=== PATIENT | female | born 1930 | race Two or more races ===

== ENCOUNTER 2018-05-13 23:05 | Emergency (ER) | payer MEDICARE, MEDICAID ==
[~2018-05-13] VITALS: Ht 162.6 cm; Wt 49.9 kg
[~2018-05-13 23:05] MED LIST: ACET-868 PO; CHOL10002 PO; DOCU-270 PO; DONE5TAB34 PO; LEVO500T75 PO; LEVO50TA PO; LISI10TA5 PO; MAG30ORA PO; MAGN400O6 PO; NA P133E RC; PANT40TA4 PO; RISP0.2515 PO
--- NOTE | 2018-05-13 23:10 | NUR ---
PT GAURI FROM [facility] FOR FALLING OUT OF WHEELCHAIR. PT AAXO1. REDNESS NOTED ON FOREHEAD. NAD. VSS. RESPIRATIONS EVEN AND UNLABORED. PENDING EVAL FROM .
--- NOTE | 2018-05-13 23:41 | NUR ---
SPINNER FIXER AT BEDSIDE FOR LAB DRAW.
--- NOTE | 2018-05-13 23:45 | NUR ---
PT TAKEN TO CT.
[2018-05-13 23:46] LABS: BASOPHILS % (AUTO) 0.3 % (0.0-2.0); EOSINOPHILS % (AUTO) 0.4 % (0.0-6.0); HEMATOCRIT 36 % (33-45); HEMOGLOBIN 12.2 g/dL (11.5-14.8); LYMPHOCYTES # (AUTO) 2.4 /CMM (0.8-4.8); LYMPHOCYTES % (AUTO) 23.3 % (20.0-44.0); MEAN CORPUSCULAR HGB CONC 34 g/dl (31.0-36.0); MEAN CORPUSCULAR VOLUME 95 fL (82-100); MONOCYTES # (AUTO) 0.6 /CMM (0.1-1.30); MONOCYTES % (AUTO) 6.2 % (2.0-12.0); NEUTROPHILS # (AUTO) 7.3 /CMM (1.8-8.9); NEUTROPHILS % (AUTO) 69.8 % (43.0-81.0); PLATELET COUNT (AUTO) 225 /CMM (150-450); RED BLOOD CELL COUNT(AUTO) 3.78 MIL/uL (4.0-5.2); WHITE BLOOD COUNT (AUTO) 10.4 K/uL (4.3-11.0)
--- NOTE | 2018-05-14 00:02 | NUR ---
PT BACK FROM CT. PT ON THE MONITOR AND PULSE OX. NAD NOTED.
[2018-05-14 00:06] LABS: CALCIUM, SERUM 9.1 mg/dL (8.5-10.1); CARBON DIOXIDE 29 mmol/L (21-32); CHLORIDE 106 mmol/L (98-107); GLUCOSE 79 mg/dL (74-106); POTASSIUM 4.2 mmol/L (3.5-5.1); SODIUM SERUM 143 mmol/L (136-145); UREA NITROGEN, BLOOD 27 mg/dL (7-18)
--- NOTE | 2018-05-14 00:06 | NUR ---
Bora yap in [facility] - 05/14/18 at 0036 by EDIE PSYCH BENDING ROLL HAND AT BEDSIDE SPEAKING WITH PT.
--- NOTE | 2018-05-14 01:17 | NUR ---
Mary called eta 0216. Transfer #[id number].
--- NOTE | 2018-05-14 02:03 | NUR ---
Report given to [facility] Production Or Plant Engineer Eliel Bagley.
[2018-05-14 02:17] VITALS: BP 130/78
== END 2018-05-14 02:19 | disposition home or self-care (01) ==
LOC: ER 23:08
DX: S00.83XA Contusion of other part of head, initial encounter (principal); K21.9 Gastro-esophageal reflux disease without esophagitis; F03.90 Unspecified dementia, unspecified severity, without behavioral disturbance, psychotic disturbance, mood disturbance, and anxiety; F20.9 Schizophrenia, unspecified; E03.9 Hypothyroidism, unspecified; I10 Essential (primary) hypertension; F41.9 Anxiety disorder, unspecified; E78.5 Hyperlipidemia, unspecified; F29 Unspecified psychosis not due to a substance or known physiological condition; W05.0XXA Fall from non-moving wheelchair, initial encounter; Y93.89 Activity, other specified; Y92.89 Other specified places as the place of occurrence of the external cause; Y99.8 Other external cause status
CPT/HCPCS: 36415; 70450; 70486; 72125; 80048; 82962 ×2; 85025; 85730; 99284; A4606

== ENCOUNTER 2019-12-13 06:45 | Inpatient (IN) | payer MEDICARE, OTHER ==
[2019-12-13] VITALS (24 sets, daily range): BP systolic 77–134; BP diastolic 40–72
[~2019-12-13] VITALS: Ht 162.6 cm; Wt 50.1 kg
[~2019-12-13 06:45] MED LIST changes: +ACET-868 GT; -ACET-868 PO; +DOCU-270 GT; -DOCU-270 PO; +DONE5TAB34 GT; -DONE5TAB34 PO; +LEVO500T23 PO; -LEVO500T75 PO; +LISI10TA5 GT; -LISI10TA5 PO; +MAGN400O6 GT; -MAGN400O6 PO; -PANT40TA4 PO; +PANT40TA49 GT
--- NOTE | 2019-12-13 07:11 | NUR ---
BIB EMS FROM [facility] C/O LOW 02 SAT 89%. ON TRANSPORT NRB 93%. TO ER BED 8, 97% ON 2 L NC ORDERES RECEIVED AND CARRIED OUT
--- NOTE | 2019-12-13 07:11 | NUR ---
blood drawn and sent to the lab. f/c inserted, urine collected and sent to lab
[2019-12-13 07:18] LABS: BASOPHILS % (AUTO) 0.2 % (0.0-2.0); HEMATOCRIT 37 % (33-45); HEMOGLOBIN 12.4 g/dL (11.5-14.8); LYMPHOCYTES # (AUTO) 1.3 /CMM (0.8-4.8); LYMPHOCYTES % (AUTO) 7.2 % (20.0-44.0); MEAN CORPUSCULAR HGB CONC 34 g/dl (31.0-36.0); MEAN CORPUSCULAR VOLUME 100 fL (82-100); MONOCYTES # (AUTO) 0.4 /CMM (0.1-1.30); MONOCYTES % (AUTO) 2.3 % (2.0-12.0); NEUTROPHILS # (AUTO) 16.3 /CMM (1.8-8.9); NEUTROPHILS % (AUTO) 90.3 % (43.0-81.0); PLATELET COUNT (AUTO) 219 /CMM (150-450); RED BLOOD CELL COUNT(AUTO) 3.66 MIL/uL (4.0-5.2)
[2019-12-13 07:41] LABS: ALANINE AMINOTRANSFERASE 27 U/L (12-78); ALBUMIN 2.8 g/dL (3.4-5.0); ALKALINE PHOSPHATASE 94 U/L (46-116); ASPARTATE AMINOTRANSFERASE 41 U/L (15-37); B-TYPE NATRIURETIC PEPTIDE 668 PG/ML (0-125); BILIRUBIN,TOTAL 0.3 mg/dL (0.2-1.0); CALCIUM, SERUM 9.9 mg/dL (8.5-10.1); CARBON DIOXIDE 30 mmol/L (21-32); CHLORIDE 106 mmol/L (98-107); CREATININE 1.3 mg/dL (0.6-1.3); GLUCOSE 112 mg/dL (74-106); POTASSIUM 3.7 mmol/L (3.5-5.1); SODIUM SERUM 144 mmol/L (136-145); TOTAL PROTEIN, SERUM 7.8 g/dL (6.4-8.2); UREA NITROGEN, BLOOD 59 mg/dL (7-18)
[2019-12-13 07:52] LABS: ABG BASE EXCESS 3.8 mmol/L; ABG OXYGEN SATURATION 92.7 % (92.0-98.5); ABG PCO2 35.1 mmHg (35.0-45.0); ABG PH 7.501 (7.350-7.450); ABG PO2 63.8 mmHg (75.0-100.0); AaDO2 123.3 mmHg; COHb 0.2 % (0.5-1.5); MetHb 0.4 % (0.0-1.5); O2Hb 92.1 % (94.0-97.0); SITE, ABG Right Radial; VENT MODE, BG 3L NC
[2019-12-13] MEDS ORDERED: LACT-209 GT (08:12)
[2019-12-13] MEDS ORDERED: CALC-883 PO (08:12)
[2019-12-13] MEDS ORDERED: AMIN887L GT (08:12)
[2019-12-13] MEDS ORDERED: BISA10SU11 RC (08:12)
[2019-12-13] MEDS ORDERED: CRAN3875 GT (08:12)
[2019-12-13] MEDS ORDERED: LEVO25TA7 GT (08:12)
[2019-12-13 08:17] LABS: D-DIMER 7.43 mg/L(FEU (0.17-0.50)
[2019-12-13 08:23] LABS: CREATINE KINASE, TOTAL 301 U/L (26-192); FERRITIN 171 ng/mL (8-388)
[2019-12-13 08:32] LABS: APPEARANCE,URINE CLEAR (CLEAR); BILIRUBIN,URINE TRACE (NEGATIVE); BLOOD, URINE TRACE Ery/uL (NEGATIVE); COLOR,URINE YELLOW (YELLOW); KETONES,URINE 15 (NEGATIVE); LEUKOCYTE ESTERASE ,URINE NEG (NEGATIVE); NITRITE, URINE NEG (NEGATIVE); PROTEIN,URINE 100 mg/dl (NEGATIVE); UGLUCOSE NEG (NEGATIVE); UROBILINOGEN,URINE 0.2 EU/dL (0.2)
[2019-12-13 08:33] LABS: BACTERIA,URINE Few /HPF (None Seen); SQUAMOUS EPITHELIAL CELL,UR Few /HPF (None Seen)
[2019-12-13 08:44] LABS: C-REACTIVE PROTEIN 34.6 mg/dL (0.0-0.9)
--- NOTE | 2019-12-13 08:50 | NUR ---
PAGED [facility].
[2019-12-13] MEDS ORDERED: CEFEPIME 1 GM in IV D5W 50 ML IV ONE (09:00)
[2019-12-13] MEDS ORDERED: VANCOMYCIN 1 GM in IV D5W 250 ML IV ONE (09:00)
--- NOTE | 2019-12-13 09:02 | NUR ---
CALLED NURSING SUP FOR TELE BED.
--- NOTE | 2019-12-13 09:31 | NUR ---
PANEL ON-CALL PAGED AGAIN
--- NOTE | 2019-12-13 09:44 | NUR ---
REPORT GIVEN TO DAVID CARRERA. AWAITING TRANSFER TO FLOOR.
[2019-12-13] MEDS ORDERED: MAG HYDROX/AL HYDROX/SIMETH 30 ML UDC PO PRN (11:00)
[2019-12-13] MEDS ORDERED: DEXAMETHASONE SOD PHOSPHATE 10 MG/ML VIAL IV SCH (11:00)
[2019-12-13] MEDS ORDERED: ACETAMINOPHEN 325 MG TABLET PO PRN (11:00)
[2019-12-13] MEDS ORDERED: HYDROCODONE/APAP 5/325MG TABLET PO PRN (11:00)
[2019-12-13] MEDS ORDERED: MAGNESIUM HYDROXIDE 30 ML UDC PO PRN (11:00)
[2019-12-13] MEDS ORDERED: Z GUARD REMEDY 2 OZ OINT TP PRN ×2 (11:00→13:30)
[2019-12-13] MEDS ORDERED: ONDANSETRON HCL/PF 4 MG/2 ML VIAL IVP PRN (11:00)
[2019-12-13] MEDS: ENOXAPARIN SODIUM 30 MG/0.3 ML DISP.SYRIN SQ SCH (11:00)
[2019-12-13] MEDS ORDERED: ENOXAPARIN SODIUM 40 MG/0.4 ML DISP.SYRIN SQ SCH (11:00)
[2019-12-13] MEDS ORDERED: CEFEPIME 1 GM in IV D5W 50 ML IV SCH (11:00)
--- NOTE | 2019-12-13 12:09 | NUR ---
AMPHIBIOUS OPERATIONS OFFICER NOTES: RECEIVED PT FROM ER. 89 YEAR OLD FEMALE PT WITH DIAGNOSIS OF PNEUMONIA. PT HAS A HX OF DEMENTIA, GERD, PSYCOSIS, OA, HYPOTHYROID, ANXIETY, HTN, AND SCHIZOPHRENIA. PT HAS NKA. PT IS ON NC 5L WITH OS STA 94%. PT IS VERY CONFUSED, ON TELE MONITOR SR, NO EDEMA PRESENT. PT HAS A CONTE DRAINING WELL. PT IS ON BED REST, NO SKIN ISSUES AND INTACT. PT HAS A IV ON RFA #18, CDI. DR WADE AWARE OF THE ADMISSION WITH ADMITTING ORDERS. WILL FOLLOW UP WITH IDT.SAFETY MEASURES IMPLEMENTED, CALL LIGHT WITHIN REACH, WILL CONTINUE TO MONITOR CLOSELY.
--- NOTE | 2019-12-13 16:57 | NUR ---
UPON ADMISSION, PATIENT WAS SR, NOW, PATIENT IS UNCONTROLLED AFIB ON MONITOR. CONTACTED DR WADE WITH FINDINGS AND ORDERED A STAT EKG. AWAITING RESULTS AND ORDERS.
--- NOTE | 2019-12-13 17:23 | NUR ---
RN NOTES: PTS BP 80/46, INFORMED MD, ORDERS TO HOLD DILTIAZEM AND ADMIN 500ML NS BOLUS. WILL RECHECK BP PORT BOLUS
[2019-12-13] MEDS ORDERED: IV NS 0.9% 500 ML BAG IV ONE (17:30)
[2019-12-13] MEDS ORDERED: DILTIAZEM HCL 25 MG IV IV PRN (17:30)
[2019-12-13] MEDS: IV NS 0.9% 1,000 ML IV PRN ×2 (17:31→21:23)
[2019-12-13] MEDS ORDERED: IV NS 0.9% 500 ML IV STA (18:39)
--- NOTE | 2019-12-13 18:46 | NUR ---
RN NOTES: UNABLE TO SCAN THE NS 500 BAG MANUAL BARCODE DONE.
--- NOTE | 2019-12-13 18:48 | NUR ---
PATIENT'S BP REMAINS LOW POST 500 CC BOLUS, CONTACTED [place] WITH RESULTS, ORDERS FOR ANOTHER 500CC BOLUS INITIATED AND NEW ORDERS INPUT FOR TRANSFER TO ICU. WILL TRANSFER PATIENT NOW.
--- NOTE | 2019-12-13 18:52 | NUR ---
RN NOTES: PT TRANSFERRED TO ICU.
--- NOTE | 2019-12-13 19:00 | NUR ---
Received patient from [facility], slightly drowsy but easily arousable,fighting .uncooperative,contracted,resisting a lot.No verbal response,but moans and groans. Not in any acute respiratory distress,with O2 via nasal cannula 5 L/min. Tachycardic HR-120-140's , Hypotensive. Transfered to ICU due to afib with RVR and hypotension.COVID test (-).
--- NOTE | 2019-12-13 19:15 | NUR ---
GAVE REPORT TO STRETCHER OPERATOR FOR CONTINUITY OF CARE. PATIENT'S BP WAS STILL LOW AND HR STILL IN UNCONTROLLED AFIB DURING TIME OF TRANSFER. Addendum: 12/13/19 at 1917 by EDWIN KO RN GAVE REPORT TO FOZIA CARRERA
[2019-12-13] MEDS ORDERED: AMIODARONE 150 MG in IV D5W 100 ML IV ONE (19:30)
[2019-12-13] MEDS ORDERED: PHENYLEPHRINE 100 MG in IV NS 0.9% 240 ML IV PRN (19:30)
--- NOTE | 2019-12-13 20:00 | NUR ---
Mid line inserted by PICC nurse via SERGEY g #18.
--- NOTE | 2019-12-13 20:13 | NUR ---
Heart rate still in and out of afib with RVR rate goes up to 160's. Started Amiodarone drip(loading dose 150 mg.) followed by drip.
--- NOTE | 2019-12-13 20:15 | NUR ---
Still hypotensive, Neosynephrine drip started for BP support.
[2019-12-13] MEDS: AMIODARONE 450 MG in IV D5W 250 ML IV PRN (20:37)
[2019-12-13] MEDS: CEFEPIME 2 GM in IV D5W 100 ML IV SCH (21:38)
--- NOTE | 2019-12-13 22:00 | NUR ---
Calm and stable,not in any distress.BP improved, will wean off Neosynephrine drip.Heart rate well controlled in the 70's, NSR.
[2019-12-14] VITALS (37 sets, daily range): BP systolic 84–149; BP diastolic 39–73
--- NOTE | 2019-12-14 | NUR ---
BP stable,Neosynephrine drip off.Heart rate controlled.
[2019-12-14] MEDS: AMIODARONE 450 MG in IV D5W 250 ML IV PRN (03:05)
--- NOTE | 2019-12-14 04:00 | NUR ---
Remains stable,nit in any distress.NSR to SB ,no episode of AFIB or tachy.
[2019-12-14 04:11] LABS: HEMATOCRIT 32 % (33-45); HEMOGLOBIN 10.6 g/dL (11.5-14.8); LYMPHOCYTES # (AUTO) 0.8 /CMM (0.8-4.8); LYMPHOCYTES % (AUTO) 4.6 % (20.0-44.0); MEAN CORPUSCULAR HGB CONC 34 g/dl (31.0-36.0); MEAN CORPUSCULAR VOLUME 101 fL (82-100); MONOCYTES # (AUTO) 0.3 /CMM (0.1-1.30); MONOCYTES % (AUTO) 1.8 % (2.0-12.0); NEUTROPHILS # (AUTO) 15.4 /CMM (1.8-8.9); NEUTROPHILS % (AUTO) 93.6 % (43.0-81.0); PLATELET COUNT (AUTO) 174 /CMM (150-450); RED BLOOD CELL COUNT(AUTO) 3.12 MIL/uL (4.0-5.2); WHITE BLOOD COUNT (AUTO) 16.5 K/uL (4.3-11.0)
[2019-12-14 04:31] LABS: CALCIUM, SERUM 8.9 mg/dL (8.5-10.1); CREATININE 0.9 mg/dL (0.6-1.3); MAGNESIUM 2.4 mg/dL (1.8-2.4); PHOSPHORUS 2.6 mg/dL (2.5-4.9)
[2019-12-14 04:51] LABS: C-REACTIVE PROTEIN 33.8 mg/dL (0.0-0.9)
--- NOTE | 2019-12-14 06:00 | NUR ---
Stable, Amiodarone @ 0.5 mg/min.Still off Pressors.not in any distress.
[2019-12-14] MEDS: ENOXAPARIN SODIUM 30 MG/0.3 ML DISP.SYRIN SQ SCH (08:30)
[2019-12-14] MEDS: IV NS 0.9% 1,000 ML IV PRN ×3 (08:32→21:50)
[2019-12-14] MEDS: HYDROCORTISONE SOD SUCCINATE 100 MG/2 ML VIAL IV SCH ×3 (09:15→21:42)
[2019-12-14] MEDS ORDERED: PANT20TA17 GT (09:56)
[2019-12-14] MEDS ORDERED: VANCOMYCIN 0.75 GM in IV D5W 250 ML IV SCH (10:00)
[2019-12-14] MEDS: JEVITY 1.2 CAL 1,000 ML BOTTLE GT PRN (16:58)
--- NOTE | 2019-12-14 17:56 | NUR ---
CERNER ANALYST CLOSING NOTES Pt had a noneventful day, was on 3 LPM/NC OO2 sat >95% at all times. Started TF at 1730, as recommended by Stave Inspector. Applied DVT pumps per protocol. Pt is contracted on 4 extremities, turned and repositioned q 2 hours and as needed. Baker remains patent and intact. No new skin breakdown noted. Will give report to assistant casino shift manager for CULLEN
--- NOTE | 2019-12-14 19:00 | NUR ---
Received patient awake.alert,non verbal,groans and moans ,moves extremities but with contractures ,resisting when moved or touched,uncooperative,does not follow commands.With O2 via nasal cannula 2 L/min, not in any respiratory distress,breathing regular and non labored. Tube feeding via G tube , 20 ml/hr (goal 60 ml/hr),will monitor residuals,increase to goal as tolerated.Comfort care done,needs attended.
[2019-12-14] MEDS: CEFEPIME 2 GM in IV D5W 100 ML IV SCH (21:42)
--- NOTE | 2019-12-14 22:00 | NUR ---
Stable,not in any distress
[2019-12-15] VITALS (28 sets, daily range): BP systolic 108–206; BP diastolic 52–113
--- NOTE | 2019-12-15 | NUR ---
Remains awake,alert,but still non verbal,not in any distress,HR controlled ,NSR,no episode of Afib.
[2019-12-15] MEDS: VANCOMYCIN 0.75 GM in IV D5W 250 ML IV SCH ×2 (03:44→22:31)
--- NOTE | 2019-12-15 04:00 | NUR ---
Remains stable, tolerating feeding ,rate increase to 50 ml/hr.AM care done, skin remains intact,still no BM (x 2 days now),
[2019-12-15 04:30] LABS: BASOPHILS # (AUTO) 0.1 /CMM (0.0-0.2); BASOPHILS % (AUTO) 0.3 % (0.0-2.0); EOSINOPHILS % (AUTO) 0.1 % (0.0-6.0); HEMATOCRIT 31 % (33-45); HEMOGLOBIN 9.9 g/dL (11.5-14.8); LYMPHOCYTES # (AUTO) 0.9 /CMM (0.8-4.8); LYMPHOCYTES % (AUTO) 4.6 % (20.0-44.0); MEAN CORPUSCULAR HGB CONC 32 g/dl (31.0-36.0); MEAN CORPUSCULAR VOLUME 103 fL (82-100); MONOCYTES # (AUTO) 0.6 /CMM (0.1-1.30); NEUTROPHILS # (AUTO) 17.5 /CMM (1.8-8.9); PLATELET COUNT (AUTO) 129 /CMM (150-450); RED BLOOD CELL COUNT(AUTO) 3.04 MIL/uL (4.0-5.2)
[2019-12-15 05:00] LABS: ALBUMIN 2.2 g/dL (3.4-5.0); BILIRUBIN,TOTAL 0.3 mg/dL (0.2-1.0); CALCIUM, SERUM 8.4 mg/dL (8.5-10.1); CREATININE 0.8 mg/dL (0.6-1.3); MAGNESIUM 2.3 mg/dL (1.8-2.4); PHOSPHORUS 2.5 mg/dL (2.5-4.9); POTASSIUM 4.2 mmol/L (3.5-5.1); TOTAL PROTEIN, SERUM 6.9 g/dL (6.4-8.2)
[2019-12-15] MEDS: HYDROCORTISONE SOD SUCCINATE 100 MG/2 ML VIAL IV SCH (05:03)
[2019-12-15 05:48] LABS: C-REACTIVE PROTEIN 17.5 mg/dL (0.0-0.9)
--- NOTE | 2019-12-15 08:00 | NUR ---
CHEMISTRY TUTOR NOTES OPENING RECEIVED PATIENT ALERT, NON VERBAL ON PENDING COVID ISOLATION. PATIENT GET ANXIETY WHEN TOUCHED. NO SOB OR DISCOMFORT NOTED. ON CONTE AND [id number] OUT. RIGHT UPPER ARM MIDLINE DRESSING NOT PATENT WILL CHANGE. NO RESIDUAL NOTED AT GT FEEDING SITE. CALL LIGHT WITHIN REACH, BED AT THE LOWEST POSITION LOCKED.
[2019-12-15] MEDS: ENOXAPARIN SODIUM 30 MG/0.3 ML DISP.SYRIN SQ SCH (09:52)
[2019-12-15 10:25] LABS: IRON, SERUM 43 ug/dl (50-175); TOTAL IRON BINDING CAPACITY 130 ug/dl (250-450)
--- NOTE | 2019-12-15 11:01 | NUR ---
WOUND CARE CONSULT:PER PRIMARY CARE NURSE ,UNABLE TO TURN PATIENT , PATIENT NOT STABLE DUE TO CURRENT CONDITION AT THIS TIME , SKIN INTACT BUT PATIENT AT RISK FOR FURTHER SKIN BREAKDOWN ,CURRENT KENZIE SCORE IS [address] STAFF [address] PATIENT ON ISOFLEX MAGDALENO BED WHEN PATIENT IS MORE STABLE ,RECOMMENDATION MADE FOR SKIN PROTECTION AND CARE, DISCUSSED WITH NURSING STAFF , IN AGREEMENT WITH PLAN OF CARE WILL SEE PRN Addendum: 12/15/19 at 1111 by ARCADIO FELDMAN RN Amended: Links added.
[2019-12-15] MEDS: JEVITY 1.2 CAL 1,000 ML BOTTLE GT PRN (13:47)
--- NOTE | 2019-12-15 16:00 | NUR ---
INFORMATION SYSTEMS SECURITY MANAGER NOTES PATIENT WAS AGITATED AND COUGHING AFTER LINEN CHANGE. HR 76 O2 SAT 85% HR 206/68. STAYED IN PATIENT`S ROOM TO CALM HER DOWN. VITALS WERE BACK WNL.
--- NOTE | 2019-12-15 18:37 | NUR ---
CIVIL PREPAREDNESS COORDINATOR NOTES PATIENT IN BED, COMFORTABLE. NO SOB OR DISCOMFORTS. DURING THE DAY, PATIENT HAD EPISODES OF AGITATION WHICH INCREASED HER BP, NO MAJOR CHANGES DURING THE SHIFT. IV SITES PATENT. NO BOWEL MOVEMENT. ALL NEEDS ATTENDED, MEDS GIVEN. REPORT WILL BE GIVEN TO RFID MANAGER NURSE FOR CULLEN.
[2019-12-15] MEDS: CEFEPIME 2 GM in IV D5W 100 ML IV SCH (21:21)
[2019-12-16] VITALS (11 sets, daily range): BP systolic 94–174; BP diastolic 42–98
--- NOTE | 2019-12-16 01:09 | NUR ---
RN NOTE NOTED WITH BLOOD PRESSURE OF 174/89 RECHECKED AND RECUFFED THREE TIMES AND STILL ELEVATED. PT ASYMPTOMATIC. NOTIFIED KATINA CHEEMA DNP. EXPLAINED THAT PT WAS ADMITTED FOR PNEUMONIA AND SEPSIS. PT USED TO BE HYPOTENSIVE WITH ORDER FOR DINO. DINO HAS BEEN ON HOLD FOR 2 DAYS. DNP STATES TO MONITOR PATIENT FOR NOW AND GIVE HYDRALAZINE 10MG IVP Q8H PRN FOR SBP > 160 ONLY IF SBP REMAINS CONSISTENTLY ELEVATED SINCE BP MIGHT DROP IF GIVEN AT THIS TIME. ORDER NOTED AND CARRIED OUT. WILL MONITOR PATIENT FOR NOW.
[2019-12-16] MEDS ORDERED: hydrALAZINE HCL IV 20 MG VIAL IV PRN (02:30)
[2019-12-16 04:53] LABS: CALCIUM, SERUM 8.9 mg/dL (8.5-10.1); CREATININE 0.8 mg/dL (0.6-1.3); POTASSIUM 3.5 mmol/L (3.5-5.1)
--- NOTE | 2019-12-16 06:05 | NUR ---
CABLE STRANDER NOTES RECEIVED PT FROM ICU. PT IN BED, COMFORTABLE. NO SOB OR DISCOMFORT. IV SITE PATENT AND INTACT. GTUBE INFUSING, TOLERATING WELL. NO S/S OF PAIN AT THIS TIME. CALL LIGHT WITHIN REACH. WILL CONTINUE TO MONITOR.
--- NOTE | 2019-12-16 06:17 | NUR ---
RN NOTE REPORT GIVEN TO BUDDY CARRERA AT BEDSIDE. PT TRANSFERRED TO ROOM 325-2 UNDER ACLS PROTOCOL IN STABLE CONDITION. ENDORSED TO BUDDY CARRERA FOR CONTINUATION OF CARE.
--- NOTE | 2019-12-16 07:00 | NUR ---
FAST BRIM POUNCER NOTES WILL GIVE REPORT TO ONCOMING NURSE FOR CULLEN.
[2019-12-16] MEDS: ENOXAPARIN SODIUM 30 MG/0.3 ML DISP.SYRIN SQ SCH (08:37)
[2019-12-16] MEDS ORDERED: DEXAMETHASONE SOD PHOSPHATE 10 MG/ML VIAL IV SCH (09:00)
[2019-12-16] MEDS ORDERED: MAGNESIUM HYDROXIDE 30 ML UDC GT PRN (10:00)
[2019-12-16] MEDS ORDERED: BISACODYL SUPP (10 MG) 10 MG/SUPP.RECT SUPP.RECT RC PRN (10:00)
[2019-12-16] MEDS: LEVOTHYROXINE SODIUM 25 MCG TABLET GT SCH (10:09)
[2019-12-16] MEDS: LISINOPRIL (10MG) 10 MG TABLET GT SCH (10:10)
[2019-12-16] MEDS: PANTOPRAZOLE 40 MG/PACK PACK GT SCH (10:10)
[2019-12-16] MEDS: JEVITY 1.2 CAL 1,000 ML BOTTLE GT PRN (12:59)
[2019-12-16] MEDS: VANCOMYCIN 1 GM in IV D5W 250 ML IV SCH (16:59)
[2019-12-16] MEDS: DOCUSATE SODIUM 100 MG CAPSULE PO SCH (17:21)
--- NOTE | 2019-12-16 19:30 | NUR ---
MS RN NOTES RECEIVED ON BED,NON VERBAL,OPEN EYES,BREATHING NON LABORED,O2 IN USED AT 2L/NC TO KEEP O2 SAT ABOVE 90%.ON GEL BED FOS KIN MANAGEMENT.DVT PUMP IN USED.ON LOVENOX FOR DVT PROPHYLAXIS,DVT SCORE OF 3.WITH JEVITY FEEDING AT 60ML/HR RATE CONTINUOSLY.NO RESIDUAL VOLUME NOTED.HOB ELEVATED FOR ASPIRATION PRECAUTION.REPOSITION PER PROTOCOL.WILL CONTINUE TO MONITOR STATUS.
--- NOTE | 2019-12-16 19:31 | NUR ---
PT IN BED, COMFORTABLE. NO SOB OR DISCOMFORT. IV SITE PATENT AND INTACT. PATIENT KEPT CLEAN AND DRY. F/C OUTPUT 500ML. GTUBE INFUSING AT 60ML/HR, TOLERATING WELL. NO S/S OF PAIN AT THIS TIME. WILL ENDORSE TO NEXT SHIFT NURSE FOR CULLEN.
[2019-12-16] MEDS: CEFEPIME 2 GM in IV D5W 100 ML IV SCH (21:21)
[2019-12-16] MEDS ORDERED: DONEPEZIL 5 MG TABLET GT SCH (22:00)
--- NOTE | 2019-12-17 05:30 | NUR ---
MS RN NOTES NEW SALINE LOCK PLACE ON RIGHT HAND #24,NS AT TKO RATE.
--- NOTE | 2019-12-17 06:16 | NUR ---
MS RN NOTES ON BED SLEEPING,TRYING TO BE STIFF WITH CARE,NS AT TKO RATE HELD AT THE MOMENT.GT FEEDING IN PROGRESS,TOLERATED WELL.NO N/V/D NOTED.REPOSITION PER PROTOCOL.CALL LIGHT IN REACH,NEEDS ATTENDED,FOR D/C PLANNING TO SNF WHEN MEDICALLY CLEARED.
[2019-12-17 06:20] LABS: HEMATOCRIT 34 % (33-45); LYMPHOCYTES # (AUTO) 0.9 /CMM (0.8-4.8); MEAN CORPUSCULAR HGB CONC 33 g/dl (31.0-36.0); MEAN CORPUSCULAR VOLUME 101 fL (82-100); MONOCYTES # (AUTO) 0.5 /CMM (0.1-1.30); NEUTROPHILS # (AUTO) 11.9 /CMM (1.8-8.9); PLATELET COUNT (AUTO) 197 /CMM (150-450); RED BLOOD CELL COUNT(AUTO) 3.34 MIL/uL (4.0-5.2); WHITE BLOOD COUNT (AUTO) 13.3 K/uL (4.3-11.0)
[2019-12-17 06:33] LABS: CALCIUM, SERUM 8.8 mg/dL (8.5-10.1); CREATININE 0.7 mg/dL (0.6-1.3); POTASSIUM 4.3 mmol/L (3.5-5.1)
--- NOTE | 2019-12-17 07:51 | NUR ---
MS RN OPENING NOTES RECEIVED PATIENT IN BED, ASLEEP. PATIENT ON OXYGEN THERAPY AT 2LPM VIA NASAL CANNULA; BREATHING IS EVEN AND UNLABORED, NO SOB PRESENT AN THIS TIME. NO S/S OF PAIN SUCH MOANING, FACIAL GRIMACING OR GUARDING. IV ACCESS ON R HAND G#20 RUNNING TKO. G-TUBE PRESENT INFUSING JEVITY 1.2 AT 60 MLS/HR. SAFETY PRECAUTIONS IN PLACE; BED IN LOW POSITION AND LOCKED, RAILS UP X2, CALL LIGHT WITHIN REACH. WILL CONTINUE TO MONITOR PATIENT.
[2019-12-17 08:00] VITALS: BP 128/63
[2019-12-17 08:05] LABS: BAND % (MANUAL) 2 % (0.0-5.0); LYMPHOCYTES % (MANUAL) 15 % (16-48); NEUTROPHILS % (MANUAL) 81 (42-76)
[2019-12-17 08:06] LABS: METAMYELOCYTES % 1 % (0-0); MONOCYTES % (MANUAL) 1 % (0-11.0)
[2019-12-17] MEDS: DOCUSATE SODIUM 100 MG CAPSULE PO SCH ×2 (08:23→16:19)
[2019-12-17] MEDS: LISINOPRIL (10MG) 10 MG TABLET GT SCH (08:24)
[2019-12-17] MEDS: ENOXAPARIN SODIUM 30 MG/0.3 ML DISP.SYRIN SQ SCH (08:24)
[2019-12-17] MEDS: LEVOTHYROXINE SODIUM 25 MCG TABLET GT SCH (08:24)
[2019-12-17] MEDS ORDERED: CEFE2FRO IV (08:39)
[2019-12-17] MEDS ORDERED: FUROSEMIDE 40 MG/4 ML VIAL IV ONE (10:00)
[2019-12-17] MEDS: VANCOMYCIN 1 GM in IV D5W 250 ML IV SCH (10:22)
[2019-12-17] MEDS: JEVITY 1.2 CAL 1,000 ML BOTTLE GT PRN (11:24)
[2019-12-17] MEDS: PANTOPRAZOLE 40 MG/PACK PACK GT SCH (11:24)
[2019-12-17 16:00] VITALS: BP 143/70
--- NOTE | 2019-12-17 18:24 | NUR ---
MS INSPECTOR HANDBAG FRAMES NOTES PATIENT DISCHARGED TO SNF IN MEDICALLY STABLE CONDITION. PATIENT NON-VERBAL, A/O X1, SATURATING WELL ON 2 LPM VIA NASAL CANNULA. ALL DISCHARGE PAPERWORK READY AND SIGNED BY 2 RNS SINCE SHE IS NOT ABLE TO. PATIENT HAD NO BELONGINGS. SNF CALLED AND REPORT GIVEN TO RECEIVING RN. PATIENT LEFT WITH CONTE CATH AND IV LINE IN ORDER TO CONTINUE IV ANTIBIOTICS AT SNF. PATIENT LEFT THE UNIT ACCOMPANIED BY 2 meterman.
== END 2019-12-17 18:15 | DRG 196 ==
LOC: ER 06:45 → TELE1 09:52 → ICU 18:52 → TELE 12-16 06:11 → MED 12-16 09:17
PROVIDERS: ADMIT Internal Medicine; ATTEND Internal Medicine
PROC: 05HY33Z Insertion of Infusion Device into Upper Vein, Percutaneous Approach (ICD-10-PCS; principal; 2019-12-13)
DX: J84.9 Interstitial pulmonary disease, unspecified (principal); J96.01 Acute respiratory failure with hypoxia; N17.0 Acute kidney failure with tubular necrosis; G92 Toxic encephalopathy; A41.9 Sepsis, unspecified organism; E27.40 Unspecified adrenocortical insufficiency; D68.59 Other primary thrombophilia; E87.2 Acidosis; F03.91 Unspecified dementia, unspecified severity, with behavioral disturbance; E87.0 Hyperosmolality and hypernatremia; E78.5 Hyperlipidemia, unspecified; E86.0 Dehydration; R13.10 Dysphagia, unspecified; Z93.1 Gastrostomy status; I48.91 Unspecified atrial fibrillation; E03.9 Hypothyroidism, unspecified; I11.0 Hypertensive heart disease with heart failure; I50.9 Heart failure, unspecified; K21.9 Gastro-esophageal reflux disease without esophagitis; M19.90 Unspecified osteoarthritis, unspecified site; F29 Unspecified psychosis not due to a substance or known physiological condition; F20.9 Schizophrenia, unspecified; Z79.899 Other long term (current) drug therapy; Z79.890 Hormone replacement therapy; Z74.01 Bed confinement status; M62.40 Contracture of muscle, unspecified site; Y95 Nosocomial condition; Z74.09 Other reduced mobility
CPT/HCPCS: 36410; 36415; 36600; 71045-TC; 80048-TC; 80053-TC; 80202-TC; 81000-TC; 82248-TC; 82533; 82550-TC; 82553; 82728-TC; 83540-TC; 83605-TC; 83615-TC; 83735-TC; 83880; 84100-TC; 84484-TC; 85025-TC; 85378-TC; 85730-TC; 86140-TC; 87040-TC; 87081-TC; 93307-TC; G0378; J0282; J0692; J1100; J1650; J1720; J1940; J2370; J3370; J3490; J7030; J7040; J7050; J7060; U0003-CS

== ENCOUNTER 2019-12-23 14:49 | Inpatient (IN) | payer MEDICARE, OTHER ==
[~2019-12-23] VITALS: Ht 162.6 cm; Wt 48.5 kg
[~2019-12-23 14:49] MED LIST changes: +AMIN887L GT; +BISA10SU11 RC; +CALC-883 PO; +CEFE2FRO IV; -CHOL10002 PO; +CRAN3875 GT; +LACT-209 GT; +LEVO25TA7 GT; -LEVO500T23 PO; -LEVO50TA PO; -MAG30ORA PO; +PANT20TA3 GT; -PANT40TA49 GT; -RISP0.2515 PO
[2019-12-23 15:20] LABS: ABG OXYGEN SATURATION 97.9 % (92.0-98.5); ABG PCO2 30.2 mmHg (35.0-45.0); ABG PH 7.569 (7.350-7.450); AaDO2 111.7 mmHg; COHb 0.1 % (0.5-1.5); MetHb 0.4 % (0.0-1.5); O2Hb 97.4 % (94.0-97.0); SITE, ABG Right Radial; VENT MODE, BG NC 4 L
[2019-12-23 15:51] LABS: BASOPHILS % (AUTO) 0.1 % (0.0-2.0); EOSINOPHILS % (AUTO) 0.6 % (0.0-6.0); HEMATOCRIT 28 % (33-45); HEMOGLOBIN 9.1 g/dL (11.5-14.8); LYMPHOCYTES # (AUTO) 0.6 /CMM (0.8-4.8); LYMPHOCYTES % (AUTO) 4.2 % (20.0-44.0); MEAN CORPUSCULAR HGB CONC 33 g/dl (31.0-36.0); MEAN CORPUSCULAR VOLUME 101 fL (82-100); MONOCYTES # (AUTO) 0.4 /CMM (0.1-1.30); NEUTROPHILS # (AUTO) 13.2 /CMM (1.8-8.9); NEUTROPHILS % (AUTO) 92.1 % (43.0-81.0); PLATELET COUNT (AUTO) 216 /CMM (150-450); RED BLOOD CELL COUNT(AUTO) 2.77 MIL/uL (4.0-5.2); WHITE BLOOD COUNT (AUTO) 14.3 K/uL (4.3-11.0)
[2019-12-23 16:02] LABS: CALCIUM, SERUM 8.2 mg/dL (8.5-10.1); CREATININE 0.6 mg/dL (0.6-1.3); POTASSIUM 3.2 mmol/L (3.5-5.1)
[2019-12-23 16:15] LABS: ALBUMIN 1.9 g/dL (3.4-5.0); BILIRUBIN,TOTAL 0.5 mg/dL (0.2-1.0); TOTAL PROTEIN, SERUM 6.4 g/dL (6.4-8.2)
--- NOTE | 2019-12-23 16:25 | NUR ---
BIBRA FROM SNF TO ER BED 5. SLEEPING ARROUSABLE W/ TACTILE STIMULI. BREATHING RAPID W/ SAT OF 92% ON RA BUT PT WAS PLACED ON A NON REBREATHER MASK. PT WAS BROUGHT IN FOR DESATURATION WITH WAS REPORTED TO BE IN THE 80%s ON RA AT THE FACILITY. PLACED IS PLACED ON 02 VIA NASAL CANULA @ 4LPM, SATTING @ 99%. RECTAL TEMP 98.6. MD WAS AT THE BEDSIDE. ORDERS RECEIVED NOTED AND CARRIED. PT ON MONITOR
[2019-12-23 16:27] LABS: APPEARANCE,URINE Slightly Cloudy (CLEAR); BILIRUBIN,URINE Negative (NEGATIVE); BLOOD, URINE Trace-intact Ery/uL (NEGATIVE); COLOR,URINE Yellow (YELLOW); KETONES,URINE Negative (NEGATIVE); LEUKOCYTE ESTERASE ,URINE Negative (NEGATIVE); NITRITE, URINE Negative (NEGATIVE); PROTEIN,URINE 100 mg/dl (NEGATIVE); UGLUCOSE Negative (NEGATIVE)
[2019-12-23 16:38] LABS: C-REACTIVE PROTEIN 12.7 mg/dL (0.0-0.9)
[2019-12-23] MEDS ORDERED: FUROSEMIDE 40 MG/4 ML VIAL IV ONE (17:00)
[2019-12-23] MEDS ORDERED: ATOR20TA GT (17:02)
[2019-12-23] MEDS ORDERED: MERO1VIA23 IV (17:02)
[2019-12-23] MEDS ORDERED: METO25TA6 GT (17:02)
[2019-12-23] MEDS ORDERED: ASPI-1169 GT (17:02)
[2019-12-23] MEDS ORDERED: VANC750F2 IV (17:02)
[2019-12-23] MEDS ORDERED: MULT9LIQ6 GT (17:02)
--- NOTE | 2019-12-23 17:10 | NUR ---
[facility] PAGED
[2019-12-23] MEDS ORDERED: FUROSEMIDE 40 MG/4 ML VIAL ONE (17:29)
[2019-12-23] MEDS ORDERED: NA PHOS,M-B/NA PHOS,DI-BA 1 EA ENEMA RC PRN (17:30)
[2019-12-23] MEDS ORDERED: MAGNESIUM HYDROXIDE 30 ML UDC GT PRN ×2 (17:30→18:59)
[2019-12-23] MEDS ORDERED: MAGNESIUM HYDROXIDE 30 ML UDC PO PRN (17:30)
[2019-12-23] MEDS ORDERED: HYDROCODONE/APAP 5/325MG TABLET PO PRN (17:30)
[2019-12-23] MEDS ORDERED: Z GUARD REMEDY 2 OZ OINT TP PRN (17:30)
[2019-12-23] MEDS ORDERED: MAG HYDROX/AL HYDROX/SIMETH 30 ML UDC PO PRN (17:30)
[2019-12-23] MEDS ORDERED: ONDANSETRON HCL/PF 4 MG/2 ML VIAL IVP PRN (17:30)
[2019-12-23] MEDS ORDERED: BISACODYL SUPP (10 MG) 10 MG/SUPP.RECT SUPP.RECT RC PRN (17:30)
[2019-12-23] MEDS ORDERED: ACETAMINOPHEN 325 MG TABLET PO PRN (17:30)
[2019-12-23] MEDS ORDERED: POTASSIUM CL. PREMIX PERIPHER. 50 ML IV ONE (17:34)
--- NOTE | 2019-12-23 17:37 | NUR ---
RN SUP CALLED FOR ROOM
[2019-12-23 17:39] LABS: BACTERIA,URINE Few /HPF (None Seen); SQUAMOUS EPITHELIAL CELL,UR Few /HPF (None Seen)
[2019-12-23 17:40] LABS: URINE AMORPHOUS URATE Moderate /HPF (None Seen)
[2019-12-23] MEDS ORDERED: POTASSIUM CL. PREMIX PERIPHER. 50 ML ONE (18:22)
--- NOTE | 2019-12-23 18:27 | NUR ---
ROOM ASSIGNMENT: [id number] TELE
--- NOTE | 2019-12-23 18:27 | NUR ---
CALLED TO GIVE REPORT BUT NURSE IS WITH ANOTHER PT. NURSE WILL PHILLIP BACK PER UNIT SEC
[2019-12-23 18:29] LABS: D-DIMER 2.09 mg/L(FEU (0.17-0.50)
[2019-12-23] MEDS ORDERED: MAG HYDROX/AL HYDROX/SIMETH 30 ML UDC GT PRN (18:59)
[2019-12-23] MEDS ORDERED: ACETAMINOPHEN 650 MG/20.3 ML UDC GT PRN (19:00)
--- NOTE | 2019-12-23 19:33 | NUR ---
REPORT GIVEN TO DEANDRE RICHEY FOR CULLEN.
--- NOTE | 2019-12-23 19:50 | NUR ---
PT TRANPORTED TO UNIT ON [facility] WITH EMT AND RN AT BEDSIDE W/ ACLS PROTOCOL. NAD NOTED DURING TRANSPORT.
--- NOTE | 2019-12-23 19:58 | NUR ---
RN NOTE RECEIVED PATIENT FROM ER VIA GURNEY ACCOMPANIED BY TWO RN'S; ADMITTING DIAGNOSIS OF CHF R/O COVID19; RESULTS PENDING. PATIENT AO X 1, NON VERBAL. IN NO S/SX OF ACUTE DISTRESS AT THIS TIME. PATIENT'S BREATHING IS EVEN AND UNLABORED. PATIENT IS ON 3 L OF OXYGEN VIA NC; TOLERATING WELL.SATURATING 95% AT THE MOMENT. PATIENT ON TELE MONITOR READING SR, HR AT 74. NOTED IV SITE ON LFA G20, AND LH G24, FLUSHING AND PATENT , SALINE LOCKED. NO S/S OF INFECTION OR INFILTRATION. NOTED REDNESS AT PERIANAL AREA, AND BILATERAL FEET. PICTURE TAKEN AND PLACED IN CHART. NOTED GTUBE IN PLACE, RESIDUAL CHECKED. STARTED TUBE FEEDING OF JEVITY 1.2 AT 20 ML/HR WITH A GOAL OF 65 ML/HR, WILL INCREASE REGULATION TOLERATED. PATIENT KEPT CLEAN , DRY AND COMFORTABLE. SAFETY MEASURES IMPLEMENTED PER PROTOCOL. PATIENT BED ALARM IS ON. HEAD OF BED ELEVATED. BED IS LOCKED, IN LOWEST POSITION AND SIDE RAILS UP. CALL LIGHT WITHIN REACH OF THE PATIENT. ISOLATION PRECAUTIONS IN PLACE. WILL CONTINUE TO MONITOR AND REASSESS FOR ANY CHANGES. WILL ATTEND TO ALL MD ADMITTING ORDERS.
[2019-12-23 20:00] VITALS: BP 118/56
--- NOTE | 2019-12-23 20:10 | NUR ---
RN NOTE Telephone call to [facility], spoke with Torie, verified that patient is full code. requested for copy of signed Physician Orders for Life-Sustaining Treatment (POLST). Provided with [facility] fax number. Copy received and placed in chart.
[2019-12-23] MEDS ORDERED: ENOXAPARIN SODIUM 40 MG/0.4 ML DISP.SYRIN SQ SCH (21:00)
[2019-12-23] MEDS: FUROSEMIDE 40 MG/4 ML VIAL IV SCH (21:11)
[2019-12-23] MEDS: ENOXAPARIN SODIUM 30 MG/0.3 ML DISP.SYRIN SQ SCH (21:13)
[2019-12-23] MEDS ORDERED: DONEPEZIL 5 MG TABLET GT SCH (22:00)
[2019-12-23] MEDS ORDERED: ATORVASTATIN 10 MG TABLET GT SCH (22:00)
[2019-12-23] MEDS: JEVITY 1.2 CAL 1,000 ML BOTTLE GT SCH (22:19)
[2019-12-24] VITALS: BP 123/91
[2019-12-24 04:00] VITALS: BP 118/63
--- NOTE | 2019-12-24 07:30 | NUR ---
RN OPENING NOTES RECEIVED PT IN BED. ASLEEP. RESPONSIVE TO TACTILE AND PAINFUL STIMULI. PATIENT AO X 1, NON VERBAL. NO CARDIAC OR RESPIRATORY DISTRESS NOTED. SATURATING WELL ON 3L OF O2 VIA NASAL CANULA. NO SOB NOTED. BREATHING EVEN AND UNLABORED. ON CARDIAC TELE MONITORING SHOWING NSR. WITH HR OF 60. IV ACCESS NOTED ON LFA G20 AND L HAND G24. INTACT AND PATENT AND FLUSHING WELL. NO S/S OF INFECTION OR INFILTRATION NOTED. GTUBE FEEDING NOTED. INTACT AND PATENT. WITH JEVITY 1.2 RUNNING AT 40ML/HR. 30ML GASTRIC RESIDUAL NOTED. FLUSHED WITH H20. PER NIGHT NURSE, GT FEEDING GOAL IS AT 65ML/HR. GT FEEDING INCREASED TO 50ML/HR. WILL CONT TO MONITOR IF PT TOLERATES AND INCREASE NEEDED. SAFETY PRECAUTIONS IN PLACE. BED LOCKED AND IN LOW POSITION. SIDE RAILS UP X2. BED ALARM ON. WILL CONT TO MONITOR.
[2019-12-24 08:00] VITALS: BP 124/72
[2019-12-24] MEDS: FUROSEMIDE 40 MG/4 ML VIAL IV SCH ×2 (08:26→21:45)
[2019-12-24] MEDS: LEVOTHYROXINE SODIUM 25 MCG TABLET GT SCH (08:26)
[2019-12-24] MEDS: ASPIRIN 81 MG TAB.CHEW GT SCH (08:26)
[2019-12-24] MEDS: DOCUSATE SODIUM LIQ 100 MG/10 ML UDC GT SCH ×2 (08:26→16:06)
[2019-12-24] MEDS: LISINOPRIL (10MG) 10 MG TABLET GT SCH (08:27)
[2019-12-24] MEDS: METOPROLOL TARTRATE 25 MG TABLET GT SCH ×2 (08:27→16:07)
[2019-12-24] MEDS ORDERED: DOCUSATE SODIUM 100 MG CAPSULE PO SCH (09:00)
[2019-12-24] MEDS ORDERED: POTASSIUM CHLORIDE 20 MEQ POWDER PACKET GT SCH (11:00)
--- NOTE | 2019-12-24 11:30 | NUR ---
K+ LEVELS K+ LEVELS ARE AT 3.6. DR. PENA MADE AWAKE. PER DR. PENA, GIVE KCL 40MEQ VIA GT. NOTED AND CARRIED OUT.
[2019-12-24 11:33] LABS: BASOPHILS % (AUTO) 0.1 % (0.0-2.0); HEMATOCRIT 29 % (33-45); HEMOGLOBIN 9.6 g/dL (11.5-14.8); LYMPHOCYTES % (AUTO) 7.2 % (20.0-44.0); MEAN CORPUSCULAR HGB CONC 33 g/dl (31.0-36.0); MEAN CORPUSCULAR VOLUME 101 fL (82-100); MONOCYTES # (AUTO) 0.5 /CMM (0.1-1.30); MONOCYTES % (AUTO) 3.6 % (2.0-12.0); NEUTROPHILS % (AUTO) 88.1 % (43.0-81.0); PLATELET COUNT (AUTO) 254 /CMM (150-450); RED BLOOD CELL COUNT(AUTO) 2.92 MIL/uL (4.0-5.2); WHITE BLOOD COUNT (AUTO) 13.6 K/uL (4.3-11.0)
[2019-12-24] MEDS: PANTOPRAZOLE 40 MG/PACK PACK GT SCH (11:41)
[2019-12-24 11:44] LABS: CALCIUM, SERUM 8.4 mg/dL (8.5-10.1); CREATININE 0.8 mg/dL (0.6-1.3); MAGNESIUM 2.1 mg/dL (1.8-2.4); PHOSPHORUS 2.5 mg/dL (2.5-4.9); POTASSIUM 3.6 mmol/L (3.5-5.1)
[2019-12-24 12:00] VITALS: BP 118/76
[2019-12-24] MEDS ORDERED: POTASSIUM CHLORIDE 20 MEQ POWDER PACKET GT ONE (13:00)
--- NOTE | 2019-12-24 15:00 | NUR ---
GT FEEDING GASTRIC RESIDUALS CHECKED. 20ML GASTRIC RESIDUAL NOTED. INCREASED GT FEEDING TO 60ML/HR. TOLERATING GT FEEDING WELL. NO S/S OF ASPIRATION NOTED.
[2019-12-24 16:00] VITALS: BP 119/71
--- NOTE | 2019-12-24 18:51 | NUR ---
RN CLOSING NOTES PT IN BED. ASLEEP. RESPONSIVE TO TACTILE AND PAINFUL STIMULI. PATIENT AO X 1, NON VERBAL. NO CARDIAC OR RESPIRATORY DISTRESS NOTED. SATURATING WELL ON 3L OF O2 VIA NASAL CANULA. NO SOB NOTED. BREATHING EVEN AND UNLABORED. ON CARDIAC TELE MONITORING SHOWING NSR. WITH HR OF 60. IV ACCESS NOTED ON LFA G20 AND L HAND G24. INTACT AND PATENT AND FLUSHING WELL. NO S/S OF INFECTION OR INFILTRATION NOTED. GTUBE FEEDING NOTED. INTACT AND PATENT. WITH JEVITY 1.2 RUNNING AT 60ML/HR. 10ML GASTRIC RESIDUAL NOTED. FLUSHED WITH H20.KEPT ND CLEAN AND DRY. ALL NEEDS MET AND ATTENDED. SAFETY PRECAUTIONS IN PLACE. BED LOCKED AND IN LOW POSITION. SIDE RAILS UP X2. BED ALARM ON. WILL CONT TO MONITOR.
[2019-12-24 20:00] VITALS: BP 129/54
[2019-12-24] MEDS: ENOXAPARIN SODIUM 30 MG/0.3 ML DISP.SYRIN SQ SCH (21:44)
[2019-12-25 01:51] VITALS: BP 131/54
[2019-12-25 04:00] VITALS: BP 133/66
[2019-12-25] MEDS: JEVITY 1.2 CAL 1,000 ML BOTTLE GT SCH (04:54)
--- NOTE | 2019-12-25 07:30 | NUR ---
rn notes received patient in bed, asleep but is awaken with touch, opens eye spontaneously, able to track but is nonverbal unable to follow commands. with oxygen at 3lp via nasal cannula. breathing unlabored. no indication of any discomfort noted at this time. with ongoing gtf: glucerna at desired rate. gt placement verified, gastric residual check done: scant amount noted on aspiration. hob kept elevated for sap.iv access g 20 noted on the left forearm, dressing in place and intact. site flushes well with no indication of infection or infiltration. bed alarm turned on. safety measures observed and maintained. call light placed within reach will continue to monitor patient accordingly
[2019-12-25 08:00] VITALS: BP_SYST 120; BP_DIAS 50; BP_DIAS 60
[2019-12-25] MEDS: DOCUSATE SODIUM LIQ 100 MG/10 ML UDC GT SCH ×2 (08:40→16:34)
[2019-12-25] MEDS: FUROSEMIDE 40 MG/4 ML VIAL IV SCH ×2 (08:41→21:52)
[2019-12-25] MEDS: LISINOPRIL (10MG) 10 MG TABLET GT SCH (08:41)
[2019-12-25] MEDS: ASPIRIN 81 MG TAB.CHEW GT SCH (08:41)
[2019-12-25] MEDS: LEVOTHYROXINE SODIUM 25 MCG TABLET GT SCH (08:41)
[2019-12-25] MEDS: METOPROLOL TARTRATE 25 MG TABLET GT SCH ×2 (08:43→16:37)
[2019-12-25] MEDS: PANTOPRAZOLE 40 MG/PACK PACK GT SCH (11:08)
[2019-12-25 12:00] VITALS: BP 119/40
[2019-12-25 16:00] VITALS: BP 143/49
--- NOTE | 2019-12-25 16:00 | NUR ---
RN NOTES ENDORSED TO DEANDRE SARAH FOR CONTINUITY OF CARE. HANDS OFF
[2019-12-25 20:00] VITALS: BP 131/56
[2019-12-25] MEDS: ENOXAPARIN SODIUM 30 MG/0.3 ML DISP.SYRIN SQ SCH (22:06)
[2019-12-26] VITALS: BP 137/80
--- NOTE | 2019-12-26 02:00 | NUR ---
RN NOTE RECEIVED PATIENT IN BED RESTING,OBTUNDED CONFUSED NO 3L OXYGEN VIA NASAL CANNULA,NO SOB NOT ACUTE DISTRESS NOTED SHE IS ON MONITORING FOR R/O COVID 19 AND ON G-TUBE FEEDING,JEVITY 1.2 65 CC/HR,PLACEMENT DONE, NO RESIDUAL NOTED, IV SITES ARE LEFT FOREARM AND LEFT HAND INTACT PATENT,HEAD OF BED ELEVATED, BED ALARM IS ON AND IN LOW POSITION,LOCKED,IMPALEMENT SAFETY MEASURE, CONTINUE TO MONITOR
--- NOTE | 2019-12-26 02:00 | NUR ---
RN NOTE RECEIVED PATIENT AT 0200 FROM DIANA CARRERA AND RESUME OF CARE.
[2019-12-26 04:00] VITALS: BP 141/67
[2019-12-26] MEDS: JEVITY 1.2 CAL 1,000 ML BOTTLE GT SCH ×2 (04:54→21:03)
[2019-12-26 06:23] LABS: BASOPHILS % (AUTO) 0.3 % (0.0-2.0); EOSINOPHILS % (AUTO) 1.3 % (0.0-6.0); HEMATOCRIT 29 % (33-45); HEMOGLOBIN 9.7 g/dL (11.5-14.8); LYMPHOCYTES # (AUTO) 1.3 /CMM (0.8-4.8); LYMPHOCYTES % (AUTO) 13.3 % (20.0-44.0); MEAN CORPUSCULAR HGB CONC 33 g/dl (31.0-36.0); MEAN CORPUSCULAR VOLUME 102 fL (82-100); MONOCYTES # (AUTO) 0.6 /CMM (0.1-1.30); MONOCYTES % (AUTO) 6.1 % (2.0-12.0); NEUTROPHILS # (AUTO) 7.5 /CMM (1.8-8.9); PLATELET COUNT (AUTO) 265 /CMM (150-450); RED BLOOD CELL COUNT(AUTO) 2.89 MIL/uL (4.0-5.2); WHITE BLOOD COUNT (AUTO) 9.5 K/uL (4.3-11.0)
--- NOTE | 2019-12-26 06:53 | NUR ---
RN CLOSING NOTE PATIENT REMAINS ON ALERT CONFUSED OBTUNDED, ON 3L OXYGEN VIA NASAL CANNULA,NO SOB NOT ACUTE DISTRESS NOTED SHE IS ON G-TUBE FEEDING JEVITY 1.2 65CC/HR HEAD OF BED ELEVATED FOR PREVENT ASPIRATION,R/O FOR COVID AND RESULT STILL IS PENDING,ALL DUE MEDS GIVEN VIA G-TUBE FEEDING,KEPT CLEAN AND DRY ALL THE TIME,ENDORSE NEXT COMING SHIFT FOR CONTINUATION OF CARE.
[2019-12-26 07:02] LABS: CALCIUM, SERUM 8.5 mg/dL (8.5-10.1); CREATININE 0.7 mg/dL (0.6-1.3); MAGNESIUM 2.2 mg/dL (1.8-2.4); PHOSPHORUS 2.9 mg/dL (2.5-4.9); POTASSIUM 3.5 mmol/L (3.5-5.1)
--- NOTE | 2019-12-26 07:56 | NUR ---
HEALTHCARE BUSINESS ANALYST/MARINA OPENING NOTE RECEIVED PT IN BED AWAKE AND ALERT. PT IS NON VERBAL. PT IS ON OXYGEN 3L VIA N/C SATURATING AT 99% AT THIS TIME. PT IS ON TELE MONITORING WITH SINUS RHYTHM HR 87 AT THIS TIME. NO ACUTE DISTRESS OR SOB NOTED. PT'S IS ON G-TUBE FEEDING JEVITY 1.2 @ 65CC/HR. G-TUBE IS INTACT AND PATENT. HOB ELEVATED TOLERATED. ASPIRATIONS PRECAUTIONS TAKEN. ALL SAFETY MEASURES IMPLEMENTED FOR PT'S SAFETY AND WELL BEING. PT HAS A LEFT FOREARM 20' INTACT, PATENT AND FLUSHED WELL. CALL LIGHT WITHIN REACH AND FUNCTIONING. BED LOCKED AND IN LOWEST POSITION. WILL CONTINUE TO MONITOR AND ASSESS PT.
[2019-12-26 08:00] VITALS: BP 115/89
[2019-12-26 08:49] LABS: CHOLESTEROL 127 mg/dL (<200); HDL CHOLESTEROL 33 mg/dL (40-60); LDL 77 mg/dL (0-99); TRIGLYCERIDES 92 mg/dL (30-150)
[2019-12-26] MEDS: DOCUSATE SODIUM LIQ 100 MG/10 ML UDC GT SCH ×2 (08:51→16:16)
[2019-12-26] MEDS: ASPIRIN 81 MG TAB.CHEW GT SCH (08:51)
[2019-12-26] MEDS: FUROSEMIDE 40 MG/4 ML VIAL IV SCH ×2 (08:52→20:58)
[2019-12-26] MEDS: LEVOTHYROXINE SODIUM 25 MCG TABLET GT SCH (08:52)
[2019-12-26] MEDS: LISINOPRIL (10MG) 10 MG TABLET GT SCH (08:52)
[2019-12-26] MEDS: METOPROLOL TARTRATE 25 MG TABLET GT SCH ×2 (08:54→17:29)
[2019-12-26] MEDS: PANTOPRAZOLE 40 MG/PACK PACK GT SCH (10:14)
[2019-12-26 12:00] VITALS: BP 119/50
[2019-12-26 16:00] VITALS: BP 108/50
--- NOTE | 2019-12-26 18:44 | NUR ---
ASSISTANT FEDERAL PUBLIC DEFENDER/MARINA CLOSING NOTE PT IS CURRENTLY IN BED AWAKE AND ALERT. PT IS NON VERBAL. NO DISTRESS OR SOB NOTED THROUGH OUT SHIFT OR CURRENTLY. PT'S HOB ELEVATED AT ALL TIMES THROUGH SHIFT AND TOLERATED WELL. PT'S G-TUBE FEEDING INTACT, PATENT AND TOLERATED WELL. PT IS IN STABLE CONDITION. PT ON TELE MONITORING WITH SINUS RHYTHM HR 79. PT ON OXYGEN 3L VIA N/C SATURATING AT 98% AT THIS TIME. ALL SCHEDULED MEDS GIVEN AND TOLERATED WELL. PT TURNED Q2HRS. PT KEPT CLEAN, DRY AND COMFORTABLE WITH HELP OF PHOTO PRODUCER. PT'S LEFT FOREARM 24' AND LEFT HAND 20' INTACT AND FLUSHED WELL. CALL LIGHT WITHIN REACH AND FUNCTIONING. BED LOCKED AND IN LOWEST POSITION. WILL ENDORSE TO NEXT SHIFT NURSE FOR CULLEN.
--- NOTE | 2019-12-26 19:32 | NUR ---
BLOCK INSPECTOR NOTES PATIENT IN BED, AWAKE, NONVERBAL. BREATHING EVEN AND UNLABORED ON 3L NC. SHOWS NO SIGNS OF ACUTE RESPIRATORY DISTRESS, NO ACUTE PAIN. TELE MONITOR SR. GTUBE RUNNING JEVITY 1.2 AT 65ML/HR. NO RESIDUALS. IV ON L HAND 20G AND L FA 24G ITS CLEAN DRY AND INTACT. SHOWS NO SIGNS OF INFILTRATION, NO REDNESS. SAFETY PRECAUTIONS IN PLACE. BED ION LOWEST POSITION, LOCKED, AND CALL LIGHT KEPT WITHIN REACH . WILL CONTINUE TO MONITOR.
[2019-12-26 20:00] VITALS: BP 131/46
[2019-12-26] MEDS: ENOXAPARIN SODIUM 30 MG/0.3 ML DISP.SYRIN SQ SCH (21:02)
[2019-12-27] VITALS: BP 98/40
[2019-12-27 05:22] VITALS: BP 128/49
[2019-12-27 06:33] LABS: BASOPHILS % (AUTO) 0.5 % (0.0-2.0); EOSINOPHILS % (AUTO) 1.1 % (0.0-6.0); HEMATOCRIT 28 % (33-45); HEMOGLOBIN 9.2 g/dL (11.5-14.8); LYMPHOCYTES # (AUTO) 1.1 /CMM (0.8-4.8); LYMPHOCYTES % (AUTO) 11.2 % (20.0-44.0); MEAN CORPUSCULAR HGB CONC 33 g/dl (31.0-36.0); MEAN CORPUSCULAR VOLUME 100 fL (82-100); MONOCYTES # (AUTO) 0.7 /CMM (0.1-1.30); MONOCYTES % (AUTO) 7.5 % (2.0-12.0); NEUTROPHILS # (AUTO) 7.6 /CMM (1.8-8.9); NEUTROPHILS % (AUTO) 79.7 % (43.0-81.0); PLATELET COUNT (AUTO) 300 /CMM (150-450); RED BLOOD CELL COUNT(AUTO) 2.78 MIL/uL (4.0-5.2); WHITE BLOOD COUNT (AUTO) 9.5 K/uL (4.3-11.0)
--- NOTE | 2019-12-27 06:42 | NUR ---
RESEARCH KENNEL SUPERVISOR NOTES PATIENT IN BED, ASLEEP, NONVERBAL. BREATHING EVEN AND UNLABORED ON 3L NC. SHOWS NO SIGNS OF ACUTE RESPIRATORY DISTRESS, NO ACUTE PAIN. TELE MONITOR SR. GTUBE RUNNING JEVITY 1.2 AT 65ML/HR. NO RESIDUALS. IV ON L HAND 20G AND L FA 24G ITS CLEAN DRY AND INTACT. SHOWS NO SIGNS OF INFILTRATION, NO REDNESS. ALL DUE MEDICATIONS GIVEN. SAFETY PRECAUTIONS IN PLACE. BED ION LOWEST POSITION, LOCKED, AND CALL LIGHT KEPT WITHIN REACH . WILL ENDORSE TO ONCOMING NURSE.
[2019-12-27 06:45] LABS: CALCIUM, SERUM 8.9 mg/dL (8.5-10.1); CREATININE 0.7 mg/dL (0.6-1.3); POTASSIUM 3.3 mmol/L (3.5-5.1)
--- NOTE | 2019-12-27 07:30 | NUR ---
RN MARINA NOTES Patient received in bed, with no acute distress. Pt is nonverbal, and unable to make needs know. All needs anticipated and provided to. Pt safety maintained. On O2 @ 3LPM with O2 saturation at 97%. Respiration is even and easy with no shortness of breath at this time. On tele monitor with sinus rhythm. On GT feeding of Jevity 1.2 @ 65 ml/hr, intact and infusing well. Head of bed kept elevated for aspiration precaution. IV site on left forearm and left hand, intact and flushed well. Will monitor for rest of shift.
[2019-12-27 08:00] VITALS: BP 121/46
--- NOTE | 2019-12-27 08:06 | NUR ---
WOUND CARE CONSULT: REVIEWED CHART, NURSING DOCUMENTATION AND PHOTOS WHICH INDICATE DEEP TISSUE INJURIES TO RT LATERAL FOOT AND HEEL WHICH ARE INTACT AND SACRAL SCARRING WHICH EXTENDS TO BUTTOCKS, PRESENT ON ADMISSION. RECOMMENDATIONS MADE FOR SKIN PROTECTION. DISCUSSED WITH NURSING STAFF. FIRST STEP LOW AIRLOSS MATTRESS IS ON ORDER. WILL SEE PRBelem HERNANDEZ IN AGREEMENT WITH PLAN OF CARE.
[2019-12-27] MEDS: FUROSEMIDE 40 MG/4 ML VIAL IV SCH (09:13)
[2019-12-27] MEDS: ASPIRIN 81 MG TAB.CHEW GT SCH (09:13)
[2019-12-27] MEDS: LISINOPRIL (10MG) 10 MG TABLET GT SCH (09:14)
[2019-12-27] MEDS: LEVOTHYROXINE SODIUM 25 MCG TABLET GT SCH (09:15)
[2019-12-27] MEDS: DOCUSATE SODIUM LIQ 100 MG/10 ML UDC GT SCH ×2 (09:15→16:46)
[2019-12-27] MEDS: METOPROLOL TARTRATE 25 MG TABLET GT SCH ×2 (09:16→16:46)
[2019-12-27] MEDS ORDERED: POTASSIUM CHLORIDE 20 MEQ POWDER PACKET GT SCH (10:00)
[2019-12-27] MEDS: PANTOPRAZOLE 40 MG/PACK PACK GT SCH (10:19)
[2019-12-27] MEDS ORDERED: FURO-145 PO (10:49)
[2019-12-27] MEDS: JEVITY 1.2 CAL 1,000 ML BOTTLE GT SCH ×2 (11:58→21:55)
[2019-12-27 12:00] VITALS: BP 112/44
--- NOTE | 2019-12-27 12:38 | NUR ---
CM MADE AWARE OF DISCHARGE,AWAITS BED ,WILL CONTINUE TO FF. UP.
--- NOTE | 2019-12-27 13:11 | NUR ---
follow up covid result still pending per cm need to have result first in order to discharge pt.
[2019-12-27 16:00] VITALS: BP 101/38
--- NOTE | 2019-12-27 18:54 | NUR ---
RN/MARINA Patient in bed, with no acute distress. Pt is nonverbal, and unable to make needs know. All needs anticipated and provided to. Pt safety maintained. On O2 @ 3LPM with O2 saturation at 97%. Respiration is even and easy with no shortness of breath at this time. On tele monitor with sinus rhythm. On GT feeding of Jevity 1.2 @ 65 ml/hr, intact and infusing well. Head of bed kept elevated for aspiration precaution. IV site on left forearm and left hand, intact and flushed well. Will endorse plan of care to oncoming nurse for continuity of care
--- NOTE | 2019-12-27 19:45 | NUR ---
TELE 1 RN NOTE RECEIVED PATIENT IN BED. ALERT X1. NONVERBAL. ISOLATION PRECAUTIONS IMPLEMENTED PENDING COVID RESULT. JEVITY FEEDING COMPLETED, WILL HANG FOLLOW UP. PT IS INCONTINENT, HAS DIAPER. SALINE LOCK ON LEFT FOREARM GAUGE 24 AND LEFT HAND GAUGE 20. FALL PRECAUTIONS OBSERVED. BED ALARM ON, IN LOWEST POSITION AND LOCKED. FREQUENT ROUNDING FOR SAFETY. CALL LIGHT WITHIN REACH. DVT PUMP IN USE FOR DVT PROPHYLAXIS.
[2019-12-27 20:00] VITALS: BP 116/53
[2019-12-27] MEDS: ENOXAPARIN SODIUM 30 MG/0.3 ML DISP.SYRIN SQ SCH (21:27)
[2019-12-28 00:15] VITALS: BP 117/51
--- NOTE | 2019-12-28 01:00 | NUR ---
TELE[address] SPECIALTY MATTRESS FOR SKIN MANAGEMENT.REPOSITIONED.
[2019-12-28 04:15] VITALS: BP 114/42
--- NOTE | 2019-12-28 06:17 | NUR ---
TELE 1 RN NOTE NO SIGNIFICANT CHANGES IN STATUS. PT IS NONVERBAL. PT IS RESTING COMFORTABLY IN BED. NO SIGNS OF RESPIRATORY DISTRESS. CALL LIGHT WITHIN REACH. BED ALARM IS ON, LOCKED AND IN LOWEST POSITION. G TUBE FEEDINGS TOLERATED WELL. NO SIGNS OF N/V OR DIARRHEA. NEEDS ATTENDED. POSSIBLE DISCHARGE, PENDING COVID RESULTS..
[2019-12-28 07:08] LABS: CALCIUM, SERUM 9.1 mg/dL (8.5-10.1); CREATININE 0.7 mg/dL (0.6-1.3); POTASSIUM 3.9 mmol/L (3.5-5.1)
[2019-12-28 08:00] VITALS: BP 108/40
[2019-12-28] MEDS: ASPIRIN 81 MG TAB.CHEW GT SCH (08:47)
[2019-12-28] MEDS: LEVOTHYROXINE SODIUM 25 MCG TABLET GT SCH (08:47)
[2019-12-28] MEDS: LISINOPRIL (10MG) 10 MG TABLET GT SCH (08:48)
[2019-12-28] MEDS: DOCUSATE SODIUM LIQ 100 MG/10 ML UDC GT SCH (08:49)
[2019-12-28] MEDS: METOPROLOL TARTRATE 25 MG TABLET GT SCH (08:50)
[2019-12-28] MEDS: PANTOPRAZOLE 40 MG/PACK PACK GT SCH (11:13)
[2019-12-28 12:00] VITALS: BP 118/50
--- NOTE | 2019-12-28 13:20 | NUR ---
Report called to Neeta CARRERA from [facility].
--- NOTE | 2019-12-28 15:20 | NUR ---
Patient cleared for d/c to SNF by . Patient non-verbal, bed bound. Responsive to touch and light pain. Patient is incontinent of bowel/bladder. Patient saturated 96% on 3L of O2 via NC. Selfwise : b/l heel redness intact, sacrum aria discoloration with no openings. G-tube intact and patent. IV line removed and ID wrist removed. All needs attended prior to d/c. D/c pictures taken. D/c instructions and medrecon provided for SNF. Patient has no belongings. Patient safely picked up by ambulance.
== END 2019-12-28 15:20 | DRG 280 ==
LOC: ER 14:49 → TELE1 18:29
PROVIDERS: ADMIT Internal Medicine; ATTEND Internal Medicine
DX: I11.0 Hypertensive heart disease with heart failure (principal); J96.01 Acute respiratory failure with hypoxia; I21.A1 Myocardial infarction type 2; G93.41 Metabolic encephalopathy; N17.0 Acute kidney failure with tubular necrosis; D68.69 Other thrombophilia; E87.0 Hyperosmolality and hypernatremia; J98.11 Atelectasis; J84.9 Interstitial pulmonary disease, unspecified; E27.40 Unspecified adrenocortical insufficiency; I50.33 Acute on chronic diastolic (congestive) heart failure; I48.0 Paroxysmal atrial fibrillation; E03.9 Hypothyroidism, unspecified; E78.5 Hyperlipidemia, unspecified; R13.10 Dysphagia, unspecified; Z79.82 Long term (current) use of aspirin; Z74.01 Bed confinement status; Z93.1 Gastrostomy status; F20.9 Schizophrenia, unspecified; E87.6 Hypokalemia; F09 Unspecified mental disorder due to known physiological condition; F03.90 Unspecified dementia, unspecified severity, without behavioral disturbance, psychotic disturbance, mood disturbance, and anxiety
CPT/HCPCS: 36415; 36600; 71045-TC; 80048-TC; 80053-TC; 80061-TC; 81000-TC; 82550-TC; 82728-TC; 83605-TC; 83615-TC; 83735-TC; 83880; 84100-TC; 84484-TC; 85025-TC; 85378-TC; 85385-TC; 85730-TC; 86140-TC; 87040-TC; 87086-TC; G0378; J1650; J1940; J3480; U0003-CS